=== PATIENT | male | born 1975 | race Two or more races ===

== ENCOUNTER 2024-12-27 03:47 | Emergency (ER) | payer SELFPAY ==
[2024-12-27 03:49] VITALS: BMI 35.5
[2024-12-27 03:52] VITALS: BP 120/59; PULSE 146; RESP 20; TEMP 37.1; O2SAT 99
--- NOTE | 2024-12-27 04:09 | PD.EDMEDCL ---
ED Medical Clearance RME/HPI General Chief complaint: Medical Clearance Stated complaint: MEDICAL CLEARANCE Time Seen by Provider: 12/27/24 03:59 Arrival date/time: 12/27/24 03:47 RME / HPI RME / HPI Narrative: Dr. Lemus?s Main ED Evaluation: Unknown male BIB PPD presents to the ED for a medical clearance. Per PPD, patient snorted some white powder and punched out a window tonight. Patient is otherwise not answering any other questions. Related Information Allergies Allergy/AdvReac Type Severity Reaction Status Date / Time No Known Allergies Allergy Verified 12/27/24 04:07 Review of Systems Review of Systems Systems Reviewed: All systems reviewed, normal except as documented ED Exam Narrative Physical exam: GENERAL APPEARANCE: alert and oriented x 4, well-developed, well-nourished, no acute distress VITALS: All vitals were reviewed and the pulse ox is 99% on room air, which is normal according to my interpretation. HEENT: Normocephalic, atraumatic; pupils equal, round, reactive to light; EOMI; mucous membranes pink, moist; oropharynx clear NECK: Supple LUNGS: CTABL; no wheezes, no rales, no rhonchi HEART: Tachycardic, regular rhythm; normal S1, S2; no murmurs ABDOMEN: non distended; normal BS; soft, no tenderness, no guarding, no rebound; no masses, no organomegaly, no hernia BACK: no CVA tenderness EXTREMITIES: deep irregular laceration to the right forearm; no edema NEUROLOGIC: awake; alert and oriented x4; cranial nerves II-XII grossly intact; no focal sensory or motor deficits PSYCHIATRIC: agitated mood and affect SKIN: warm, diaphoretic, normal color; no rashes Course Quality Measures none Orders Category Date Time Status DiphenhydrAMINE INJ [Benadryl Inj] Med 12/27/24 04:58 Discontinued 50 mg IM X1 ONE LORazepam [Ativan Inj] Med 12/27/24 03:59 Discontinued 2 mg IM X1 ONE LORazepam [Ativan Inj] Med 12/27/24 04:58 Discontinued 2 mg IM X1 ONE Vital Signs Vital signs: Vital Signs Temperature 98.8 F 12/27/24 03:52 Pulse Rate 146 H 12/27/24 03:52 Respiratory Rate 20 12/27/24 03:52 Blood Pressure 120/59 L 12/27/24 03:52 Pulse Oximetry (%) 99 12/27/24 03:52 Oxygen Delivery Method Room Air 12/27/24 03:52 Medical Clearance MDM Narrative [facility] Narrative:: Scribe Attestation: 12/27/24 Marisela Nobles am scribing for and in the presence of Dr. Lemus. Patient continues to be too agitated, combative, and paranoid. He will not allow me to suture the laceration on his forearm. Patient is stable to be discharged into [facility] custody. Patient data External records reviewed:: [facility] previous records (Unknown previous visits due to the patient not providing his name.) Clinical information provided by:: patient and law enforcement Social determinants that could affect healthcare access:: substance use (unknown substance use) Patient has the following chronic illnesses:: unknown How is presenting disease/condition affected by chronic disease/condition?: no chronic disease Evaluation data The following diagnostics were reviewed and interpreted by me:: other (specify) (none) Lab and/or radiology exams considered but not ordered:: none Interpretation Summary: none Medications / Prescriptions Medications or Prescriptions considered but not ordered:: none Medication administrations:: Medication Administration History Discontinued Medications Diphenhydramine HCl (Diphenhydramine Inj 50 Mg/Ml Vial) 50 mg IM X1 ONE Stop: 12/27/24 04:59 Lorazepam (Lorazepam 2 Mg/Ml Vial) 2 mg IM X1 ONE Stop: 12/27/24 04:00 Last Admin: 12/27/24 04:15 Dose: 2 mg Documented By: DT Lorazepam (Lorazepam 2 Mg/Ml Vial) 2 mg IM X1 ONE Stop: 12/27/24 04:59 see above Consultations Consultation(s) initiated? (list below): No Diagnosis Medical Clearance Differential Diagnosis: other (laceration, avulsion of skin, drug abuse, alcohol intoxication, acute psychosis) Most likely diagnosis given after review of the tests above:: see clinical impression below Admission Indicated Admission indicated?: not indicated Admission Request Was there a request for admission?: No Disposition Plan Disposition Plan: Discharge Discharge Attestation Discharge Attestation: The patient and all family members were given an opportunity to ask questions and understood the discharge instructions. Discharge instructions specifically effects, indications for sooner follow up or return to the emergency department, and the expected course of current diagnosis. Patient condition: Stable Discharge Plan Plan Patient Disposition: Assisted/Court/Law Discharge Disposition comment: Okay to book Problem List Clinical Impression: Medical clearance for incarceration, Laceration of forearm, Agitation Patient/Caregiver Discharge Instructions Education Materials: ED Laceration: All Closures Print Language: Bengali
[2024-12-27] MEDS: LORazepam 2 MG/ML VIAL IM (04:15)
--- NOTE | 2024-12-27 04:23 | PC.NURSE ---
PATIENT REFUSING TO ANSWER ORIENTATION QUESTIONS. PATIENT REFUSING TO INFORM STAFF OF NAME AND DATE OF . PER PATIENT I DONT WANT TO BE HERE, I DONT WANT TO TALK I JUST WANT MY HAND STITCHED UP AND LEAVE.
[2024-12-27 05:02] VITALS: BP 120/59; PULSE 135; RESP 14; TEMP 37; O2SAT 99
--- NOTE | 2024-12-27 05:10 | PC.NURSE ---
PATIENT IS REFUSING IM MEDICATIONS ORDERED BY PROVIDER GISELA. PER PATIENT I DONT WANT THAT MEDICATION . PROVIDER GISELA INFORMED.
[2024-12-27 05:15] VITALS: BP 125/85; PULSE 145; RESP 18; TEMP 37; O2SAT 99
== END 2024-12-27 05:18 ==
LOC: SERX 05:05
PROVIDERS: Emergency Provider Emergency Medicine
DX: Z02.89 Encounter for other administrative examinations (principal); R45.1 Restlessness and agitation; S51.811A Laceration without foreign body of right forearm, initial encounter; W22.09XA Striking against other stationary object, initial encounter
CPT/HCPCS: 96372; 99282; J2060